=== PATIENT | female | born 1995 | race Caucasian/White ===

== ENCOUNTER 2017-05-17 14:26 | Emergency (ER) | payer BC ==
[2017-05-17 14:33] VITALS: RESP 18
--- NOTE | 2017-05-17 15:15 | EDPHY ---
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 The pain has since mood behind her right eye into her right sinus and she reports that as moderate in nature, constant and nonradiating. She takes verapamil, tramadol, Zofran without any relief. She also called her neurologist approximately 3 days ago who started her on methylprednisolone 4 mg x6 days; she is on day 3. She is unable to take Imitrex per her neurologist. She is unsure of when she had her last head imaging. She reports that this feels like her normal migraine headaches and denies any sinus disease/allergies/sinus pressure/nasal congestion. Patient premedicated both a sees with viscous lidocaine that she placed plastic over and then stool sealed it with duct tape as she reports that she has vasovagal near-syncope with IV access and blood draws. Modifying Factors: Methylprednisolone 4 mg day 3 of 6; no relief Comment: ROS: see HPI Constitutional: No fever, no chills, no weight loss Eyes: No blurred vision Respiratory: No shortness of breath, no cough Cardiovascular: No chest pain Gastrointestinal: No nausea, no vomiting, no diarrhea Genitourinary: No dysuria Extremities: No myalgias Neurologic: No weakness, no numbness Skin: No rashes Hematologic: No bruising, no bleeding MEDICAL/SURGICAL/SOCIAL HISTORY: Medical history: Migraine headaches. Surgical history: Denies Social history: Student CONSTITUTIONAL: extremely well-appearing young adult white female, wearing sunglasses, very talkative, awake and alert, no obvious distress HEENT: Atraumatic and normocephalic, PERRL, EOMI. Tympanic membranes clear. Oropharynx clear, no exudate and moist pink mucosa. Airway patent. No lymphadenopathy. No meningismus. Cardiovascular: Normal S1/S2, regular rate, regular rhythm, without murmur rub or gallop. PULMONARY/CHEST: Symmetrical and nontender. Clear to auscultation bilaterally. Good air movement. No accessory muscle usage. ABDOMEN: Soft, nondistended, nontender, no rebound, no guarding, no peritoneal signs, no masses or organomegaly. No CVAT. EXTREMITIES: 2/2 pulses, strength 5/5, no deformities, no clubbing, no cyanosis or edema. NEUROLOGICAL: no focal neuro deficits. GCS 15. Cranial nerves 2-12 grossly intact. Normal finger to nose. Normal Romberg test. Normal [id number] test. Speech clear and articulate. SKIN: Warm and dry, no erythema. no rash. Good capillary refill. Source: Patient - Personal History LMP (Females 10-55): Over 28 Days Ago Current Tetanus/Diphtheria Vaccine: Yes Current Tetanus Diphtheria and Acellular Pertussis (TDAP): Yes Tetanus Vaccine Date: < 10 years - Medical/Surgical History Hx Asthma: No Hx Chronic Respiratory Disease: No Hx Diabetes: No Hx Cardiac Disease: No Hx Renal Disease: No Hx Cirrhosis: No Hx Alcoholism: No Hx HIV/AIDS: No Hx Splenectomy or Spleen Trauma: No Other PMH: Migraine headache - Social History Smoking Status: Never smoked Constitutional: Initial Vital Signs Temperature (C) 37 C 05/17/17 14:31 Heart Rate 90 05/17/17 14:31 Respiratory Rate 18 05/17/17 14:31 Blood Pressure 127/82 H 05/17/17 14:31 O2 Sat (%) 99 05/17/17 14:31 O2 Delivery Mode Room Air Allergies/Adverse Reactions: doxepin Allergy (Verified 05/17/17 14:29) Home Medications: Medication Instructions Recorded Albuterol 05/17/17 Claritin 05/17/17 Prochlorperazine Maleate 05/17/17 SOLU-MEDROL 05/17/17 TRAMADOL HCL 05/17/17 Verapamil 05/17/17 Zofran 05/17/17 Medical Decision Making - Diagnostics Imaging Results: Imaging Impressions Head CT 05/17/17 15:34 Impression: 1. Normal CT brain without contrast. 2. No significant sinus disease. Findings and recommendations discussed with Emergency Department physician, Teresa Snyder at 16:34 hour, 05/17/2017. Final report concurs with initial preliminary interpretation.. ED Course/Re-evaluation: Head CT scan, IV fluids, IV medications ordered Patient is neurologically stable. Given 1 L normal saline, IV promethazine, IV Decadron 1633: Called by radiologist who advised head CT scan shows no acute intracranial process including no sinusitis. 1635: Reassessed patient who advised that the Decadron made her headache worse even though she is taking in a in oral form for the last 3 days. IV Haldol ordered 1727: Reassessed patient that states that he feels better and pain now down to a 4/10. Will discharge home, patient is to complete her steroids per Neurology and follow up Differential Diagnosis: Headache including but not limited to subarachnoid hemorrhage, migraine headache , tension headache and infectious causes such as meningitis, pharyngitis and sinusitis. - Data Points Medications Given: Discontinued Medications Dexamethasone (Decadron Injection) 8 mg IVP EDNOW ONE Stop: 05/17/17 15:35 Last Admin: 05/17/17 16:07 Dose: 8 mg Haloperidol Lactate (Haldol Injection) 2.5 mg IVP EDNOW ONE Stop: 05/17/17 16:37 Last Admin: 05/17/17 16:46 Dose: 2.5 mg Sodium Chloride (Ns) 1,000 mls @ 3,000 mls/hr IV EDNOW ONE Stop: 05/17/17 15:53 Last Admin: 05/17/17 15:59 Dose: 1,000 mls Magnesium Sulfate/Dextrose (Magnesium Sulf 1 Gm (Premix)) 100 mls @ 100 mls/hr IV EDNOW ONE Stop: 05/17/17 16:43 Last Admin: 05/17/17 16:41 Dose: Not Given Promethazine HCl (Phenergan) 12.5 mg IVP EDNOW ONE Stop: 05/17/17 15:35 Last Admin: 05/17/17 16:02 Dose: 12.5 mg Sumatriptan Succinate (Imitrex Sc Injection) 6 mg SC EDNOW ONE Stop: 05/17/17 15:35 Last Admin: 05/17/17 16:54 Dose: Not Given Departure - Departure Disposition: Home, Routine, Self-Care Clinical Impression: Migraine headache without aura Qualifiers: Status migrainosus presence: without status migrainosus Intractability: not intractable Qualified Code(s): G43.009 - Migraine without aura, not intractable , without status migrainosus Condition: Fair Instructions: Migraine Headache (ED) Additional Instructions: Please follow-up with your neurologist and primary care provider. Avoid the triggers that cause your migraine headaches. Referrals: Paulo Jordan, DO [Medical Doctor] - As per Instructions
[2017-05-17] MEDS ORDERED: SUMAtriptan 6 MG/0.5 ML VIAL SC ONE (15:34)
[2017-05-17] MEDS ORDERED: NS 1,000 ML IV ONE (15:34)
[2017-05-17] MEDS ORDERED: DEXAMETHASONE 4 MG/ML VIAL IVP ONE (15:34)
[2017-05-17] MEDS ORDERED: PROMETHAZINE HCL 25 MG/ML INJ IVP ONE (15:34)
[2017-05-17] MEDS ORDERED: MAGNESIUM SULF 1 GM/DEXTROSE 100 ML IV ONE (15:44)
[2017-05-17] MEDS ORDERED: DEXAMETHASONE 4 MG/ML VIAL ONE (16:06)
[2017-05-17] MEDS ORDERED: HALOPERIDOL LACT 5 MG/ML INJ IVP ONE (16:36)
[2017-05-17 17:57] VITALS: BP 118/68; PULSE 71; TEMP 98.1; O2SAT 97
== END 2017-05-17 17:57 | disposition home or self-care (01) ==
DX: G43.009 Migraine without aura, not intractable, without status migrainosus (principal); R11.10 Vomiting, unspecified
CPT/HCPCS: 96374; J1100; J2550